=== PATIENT | female | born 1965 | race African-American/Black ===

== ENCOUNTER 2024-02-27 06:00 | Inpatient (IN) | payer MEDICAID ==
[~2024-02-27] VITALS: Ht 172.7 cm; Wt 89.2 kg
[2024-02-27] VITALS (17 sets, daily range): BP systolic 123–145; BP diastolic 65–94; PULSE 66–97; RESP 14–20; TEMP 97.4–98.4; O2SAT 18–100
[~2024-02-27 06:00] MED LIST: DIVA125T30 PO; GABA-1250 PO; HYDR-4833; QUET400T
[2024-02-27] MEDS: SUCCINYLCHOLINE CHLORIDE 20 MG/ML 10ML VIAL IV ONE (06:33)
[2024-02-27] MEDS: ceFAZolin 2 GM/D5W100ml 100 ML IV ONE (06:33)
[2024-02-27] MEDS: TETRACAINE 1% INJ 2 ML VIAL IJ ONE (06:33)
[2024-02-27] MEDS ORDERED: MORPHINE SULF PF 5 MG/10 ML VIAL ONE (06:36)
[2024-02-27] MEDS ORDERED: fentaNYL CITRATE 100 MCG/2 ML VL ONE (06:36)
[2024-02-27] MEDS ORDERED: ONDANSETRON HCL 4 MG/2 ML VIAL ONE (06:36)
[2024-02-27] MEDS ORDERED: EPINEPHrine HCL 1 MG/1 ML AMP ONE (06:36)
[2024-02-27] MEDS: ROPIVACAINE 0.5% (5MG/ML) 20ML AMPULE IJ ONE ×2 (06:36→08:47)
[2024-02-27] MEDS ORDERED: MIDAZOLAM HCL 2MG/2ML 2ml VIAL (1mg/ml) ONE ×2 (06:36)
[2024-02-27] MEDS: BUPIVACAINE 0.25% INJ 50ML VIAL ONE (06:36)
[2024-02-27] MEDS ORDERED: BUPIVACAINE/DEXTROSE MPF 0.75% 2 ML AMP IT ONE (06:36)
[2024-02-27] MEDS ORDERED: LIDOCAINE 1% INJ PF 5ML AMP ONE (06:36)
[2024-02-27] MEDS ORDERED: DexAMETHasone SOD PHOS 10MG/1ML VIAL INJ ONE (06:36)
[2024-02-27] MEDS ORDERED: PROPOFOL 10 MG/ML 20 ML IV ONE (06:36)
[2024-02-27] MEDS: TRANEXAMIC ACID 20 ML ONE (06:36)
[2024-02-27] MEDS ORDERED: SODIUM CHLORIDE LOCK 10 ML ONE (06:36)
[2024-02-27] MEDS: VANCOMYCIN HCL 1000 MG VL ONE (06:38)
[2024-02-27] MEDS: EPINEPHrine HCL 1 MG/1 ML AMP ONE (06:41)
[2024-02-27] MEDS ORDERED: MORPHINE SULFATE INJ 2 MG/ml SYRG IV PRN (07:00)
[2024-02-27] MEDS: METOCLOPRAMIDE HCL 5MG/ml INJ 2ml VIAL IV ONE (07:00)
[2024-02-27] MEDS ORDERED: HYDROmorphone HCL 2 MG/ML VL/or syr IV PRN ×2 (07:00)
[2024-02-27] MEDS: CEFEPIME 1GM/ 50ML 50 ML IV ONE (07:31)
--- NOTE | 2024-02-27 09:19 | DVHOP2 ---
Operative Report - 2 Report Details Date: 02/27/24 Preop Diagnosis: Right knee degenerative arthritis Postop Diagnosis: Same Surgeon: Benjamin Shah MD Field Sales Executive: Bill JENNINGS Anesthesiologist: Lennox Anesthesia: Local, Regional Drains: Alicia closed wound suction Implant: DJO right femur size seven PS, size six tibial base plate, size 10 polyethylene Consent: The patient was informed of the risks and benefits of the procedure. These include but are not limited to complications of anesthesia, postoperative infection, incomplete relief of symptoms, recurrence of symptoms, damage to blood vessels, nerves and tendons, deep venous thrombosis, pulmonary embolism and possible need for repeat surgery in the future. Complications: None Estimated Blood Loss: 25 cc Fluids: See anesthesia record Findings: Varus deformity, denuded cartilage with eburnated bone and osteophytes Indications for Surgery: Right knee severe pain and functional impairment secondary to degenerative arthritis and failed nonoperative management Name of Procedure Performed Right total knee arthroplasty Procedure Details Procedure Details: The patient was brought to the operating room and placed on the table in the supine position after being given spinal anesthetic with adequate analgesia obtained. Surgical timeout was performed verifying patient, laterality and procedure Preop patient received IV IV Ancef, cefepime and IV tranexamic acid. Tourniquet was applied to the lower extremity. Extremity was elevated, exsanguinated Esmarch, and tourniquet inflated. Lower extremity was prepped and draped in sterile fashion. Midline incision was made followed by medial arthrotomy. I exposed the anterior medial and lateral tibial plateau and the anterior distal femur. Bovie and aqua mantis were used for hemostasis. I excised the anterior meniscal tissue with Bovie. [ I excised the anterior cruciate ligament with Bovie.] I excised a portion of the fat pad with Bovie. The patella was everted and the knee flexed. I drilled the distal femur and suctioned the hole to reduce the risk of fat emboli. I inserted intramedullary guide with 5 degree valgus setting. I pinned the distal femoral cutting block anteriorly. Intramedullary jaylyn was removed. Distal femoral cut was made and the block removed. I brought my attention to the tibia setting up the external cutting jig for the tibia paying attention to slope, rotation and varus valgus alignment. I set the depth and pinned the block. I used the external alignment jaylyn to aid in checking alignment. Bone cut was made and bone removed releasing soft tissue attachments with Bovie. Cutting block removed. I then checked the extension gap and deemed adequate and removed the femur and tibia pins. I flexed the knee and applied the femoral sizing guide to the femur. I checked the size and external rotation setting at 90 degrees to [place] line and checking the epicondylar axis. I drilled the holes then removed the sizing guide and pin. I then tapped on the 4 in 1 cutting block and checked with the star wing anteriorly to make sure that I would not notch then pinned the block. Cuts were made and the block and pins were removed. Bone was removed with curved osteotome. I used a rongeur to remove any remaining osteophytes at the femur and tibia. I then used a lamina picture booker to open up the back alternating between the medial and lateral side. Any remaining meniscal tissue was excised with scalpel. I used curved osteotome, curette and rongeur to remove any poste rior osteophytes. [I injected a total of 20 cc of 0.5% ropivacaine into the posterior capsule to facilitate the planned adductor block.] I prophylactically coagulated with aqua mantis. I then applied the template for the box cut and pinned it. Box cut was made and bone removed. I removed the template and pins. I then tapped on the femoral trial. I inserted the box cutting guide. I used the reamer and box osteotome to make the box cut. Guide was removed. I then removed bone in the notch with rongeur and inserted the box trial. I then brought my attention back to the tibia sizing it. I used the external alignment jaylyn to make sure that rotation and alignment were good. I made a Bovie marcela at the tibial tray marcela identifying rotation for later use. I pinned the tray and used the reamer and keel punch. I tried various tibial polytrials until I was satisfied. The patella tracked nicely without thumb pressure. I removed the trials. The implants were brought into the field while bone preparation was started. I used both normal saline irrigation and the CarboJet to prepare the bone. I used the chamfer cut to graft the femoral tunnel. Once cement was ready I applied cement to the tibial implant and tibial bone tapped it on and removed excess cement in usual fashion. In similar fashion I tapped on the femoral implant. I inserted the trial polyethylene and brought the knee into 30 degrees flexion. I irrigated with xperience irrigant. Once cement cured, I checked stability and range of motion as well as patella tracking. tourniquet was released and hemostasis maintained with aqua mantis. I inserted the polyethylene and again checked stability. I used a 2 grams of vancomycin half of which was placed deep and half superficial. I repaired the extensor mechanism with the knee in flexion with #1 Ethibond interrupted [id number]. Deep subcutaneous tissue was closed with 0 Vicryl. Superficial subcutaneous tissue was closed with 2-0 vicryl interrupted. Skin was closed with ira. I then applied the [alicia closed wound suction]. Patient tolerated the procedure well and was brought to recovery room in stable condition. Condition Stable Disposition Still a Patient BENJAMIN SHAH MD Feb 27, 2024 09:19
[2024-02-27] MEDS ORDERED: oxyCODONE HCL 5MG TAB PO PRN ×2 (09:30)
[2024-02-27] MEDS ORDERED: NALOXONE HCL 0.4 MG/ML VIAL IV PRN (09:30)
[2024-02-27] MEDS: D5W/LACTATED RINGERS 1,000 ML IV SCH (09:30)
[2024-02-27] MEDS ORDERED: ACETAMINOPHEN 325 MG TAB PO PRN (09:30)
[2024-02-27] MEDS ORDERED: diphenhdrAMINE HCL 50 MG/1 ML VL IV PRN (09:30)
[2024-02-27] MEDS: PREGABALIN 25 MG CAP PO SCH (10:00)
--- NOTE | 2024-02-27 10:02 | DVH ---
CLINICAL INDICATION: postop TECHNIQUE: XY R KNEE 2V XRAY Comparison: None FINDINGS/IMPRESSION: Right total knee arthroplasty. Skin ira are present.
[2024-02-27] MEDS: ACETAMINOPHEN 325 MG TAB PO SCH (12:27)
[2024-02-27] MEDS: KETOROLAC TROMETH 30 MG/ML 1ML VIAL IV SCH (12:27)
[2024-02-27] MEDS: ceFAZolin 2 GM/D5W50ml 50 ML IV SCH (15:38)
--- NOTE | 2024-02-27 16:24 | DVHINCON2 ---
Date Seen: Feb 27, 2024 Referring Physician Orthopedic surgeon. Reason for Consultation Medical management. History of Present Illness 58-year-old female with a known history of peripheral neuropathy, bipolar disorder initially was sent to the hospital with a degenerative joint disease of the right knee. Patient currently status post right total knee arthroplasty. Patient does have known history of bipolar disorder and peripheral neuropathy currently on gabapentin and Seroquel. Patient currently denies any chest pain shortness of breath. Past Medical History Bipolar disorder Peripheral neuropathy Past Surgical History Status post right total knee arthroplasty for degenerative joint disease of the right knee. Family History: Patient reports no known family medical history. Allergies: Coded Allergies: NO KNOWN ALLERGIES (Unverified , 02/24/24) Home Meds Reported Medications Divalproex Sodium (Depakote) 125 Mg Tab, 125 MG PO, TAB 02/24/24 Gabapentin (Gabapentin) 300 Mg Cap, 300 MG PO for 30 Days, MG 02/24/24 Quetiapine Fumerate (Seroquel) 400 Mg Tab 12/31/11 Hydrocodone-Acetaminophen ([place] 5/325MG) 1 Tab Tb 12/31/11 Current Medications Current Medications Medications (Trade) Dose Ordered Sig/Goldy Route PRN Reason Start Time Stop Time Status Last Admin Hydromorphone HCl (Dilaudid Injection) 0.5 mg Q10M PRN IV SEVERE PAIN (7-10 PAIN SCALE) 02/27/24 07:00 02/27/24 07:41 DC Hydromorphone HCl (Dilaudid Injection) 0.25 mg Q10M PRN IV MODERATE PAIN (4-6 PAIN SCALE) 02/27/24 07:00 02/27/24 07:31 DC Morphine Sulfate 1 mg Q30M PRN IV SEVERE PAIN (7-10 PAIN SCALE) 02/27/24 07:00 02/27/24 09:01 DC Diphenhydramine HCl (Benadryl Injection) 25 mg Q4HP PRN IV FOR ITCHING 02/27/24 09:30 Naloxone HCl (Narcan) 0.2 mg Q5M PRN IV For respirations < than 10/min 02/27/24 09:30 02/27/24 09:36 DC Quetiapine Fumarate (SEROquel TABLET) 400 mg HS PO 02/27/24 22:00 Dextrose/Lactated Ringer's 1,000 ml @ 100 mls/hr Q10H IV 02/27/24 09:30 02/27/24 09:30 Acetaminophen (Tylenol Tablet) 650 mg Q4HP PRN PO MILD PAIN (1-3 PAIN SCALE) 02/27/24 09:30 Cefazolin Sodium/ Dextrose 50 ml @ 50 mls/hr Q8HR IV 02/27/24 14:00 02/27/24 22:59 02/27/24 15:38 Acetaminophen (Tylenol Tablet) 650 mg Q6HR PO 02/27/24 12:00 02/27/24 12:27 Ketorolac Tromethamine (Toradol Injection) 15 mg Q6HR IV 02/27/24 12:00 03/03/24 11:59 02/27/24 12:27 Pregabalin (Lyrica Capsule) 50 mg BID PO 02/27/24 10:00 Oxycodone HCl 5 mg Q4HP PRN PO MODERATE PAIN (4-6 PAIN SCALE) 02/27/24 09:30 Oxycodone HCl 10 mg Q4HP PRN PO SEVERE PAIN (7-10 PAIN SCALE) 02/27/24 09:30 Aspirin 81 mg BID PO 02/28/24 10:00 Review of Systems Twelve review of system were negative except mentioned above Vital Signs Vital Signs Date Time Temp Pulse Resp B/P (MAP) Pulse Ox O2 Delivery O2 Flow Rate FiO2 02/27/24 16:08 82 16 97 02/27/24 13:00 98.4 142/79 (100) 98.4 02/27/24 12:11 Room Air* 0 21 Physical Exam HEENT pupils are reactive Neck is supple CV is S1-S2 regular rate and rhythm Respiratory diminished breath sound bases GI posterior portion 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 1. Bipolar disorder 2. Peripheral neuropathy 3. Status post right total knee arthroplasty for degenerative joint disease -pain meds as needed, resume home medication, PT evaluation and treatment, discharge plan. Plan discussed with: Patient Date of Service: Feb 27, 2024 Billing Provider: ISSA LEGER MD Common Visit Codes: NOT BILLABLE ISSA LEGER MD Feb 27, 2024 16:24
[2024-02-27] MEDS: ONDANSETRON HCL 4 MG/2 ML VIAL IV PRN (18:27)
[2024-02-27] MEDS: QUEtiapine FUMARATE 100 MG TAB PO SCH (20:41)
[2024-02-28] VITALS (18 sets, daily range): BP systolic 111–149; BP diastolic 70–88; PULSE 68–127; RESP 16–22; TEMP 97.6–98.3; O2SAT 93–98
[2024-02-28 06:20] LABS: Anion Gap 6 (5-15); Carbon Dioxide 32 mmol/L (20-31); Chloride 105 mmol/L (98-107); Potassium 3.8 mmol/L (3.5-5.1); Sodium 143 mmol/L (136-145)
[2024-02-28 06:21] LABS: Calcium 9.6 mg/dL (8.7-10.4)
[2024-02-28 06:26] LABS: Blood Urea Nitrogen 15 mg/dL (9-23); Glucose 112 mg/dL (74-106)
[2024-02-28 08:02] LABS: Basophils # (auto) 0.1 10 ^3/uL (0-0.2); Basophils % (auto) 0.8 % (0.0-2.0); Eosinophils # (auto) 0 10 ^3/uL (0-0.8); Eosinophils % (auto) 0.5 % (0.0-7.0); Hematocrit 34.9 % (36.0-46.0); Hemoglobin 11.7 g/dL (12.2-16.2); Lymphocytes # (auto) 2.2 10 ^3/uL (0.4-5.4); Lymphocytes % (auto) 26.8 % (10.0-50.0); Mean Corpuscular Hemoglobin 31.6 pg (28.0-32.0); Mean Corpuscular Hgb Conc. 33.5 g/dL (32.0-36.0); Mean Corpuscular Volume 94.4 fL (80.0-100.0); Monocytes # (auto) 1.2 10 ^3/uL (0-1.3); Neutrophils # (auto) 4.6 10 ^3/uL (1.6-8.6); Neutrophils % (auto) 56.9 % (37.0-80.0); Nucleated Red Blood Cells % 0.1 %; Platelet Count (auto) 254 10^3/uL (140-450); Red Cell Distribution Width 13.3 % (11.8-14.3); White Blood Cell 8.1 10^3/uL (4.4-10.8)
[2024-02-28] MEDS: ASPirin 81 mg TAB PO SCH (09:40)
--- NOTE | 2024-02-28 11:08 | DVHPN2 ---
Progress Note - Dictate Date Seen: Feb 28, 2024 Medical Necessity Reason Pt with a Central, PICC or Fol: No Subjective Patient was lying comfortably in bed during my evaluation and reports some postoperative knee pain that has not improved much despite the use of pain medications and reports that she was given pain meds last night and began experiencing nausea and vomited approximately 600ml of fluid according to nurse who also reports that the patient developed the nausea after being given Toradol. Patient continues to experience nausea today and was just about to be given Zofran during my evaluation. Patient reports that she was able to walk a few steps near her bed but felt a lot of pain and nausea so had to sit back down. She is otherwise feeling well denying any other complaints or concerns during my evaluation. vital signs Vital Sign Date Time Temp Pulse Resp B/P (MAP) Pulse Ox O2 Delivery O2 Flow Rate FiO2 02/28/24 09:11 115 18 93 02/28/24 09:00 98.0 125/76 (92) 98.0 02/28/24 08:00 Room Air* 0 21 Total Intake and Output 02/27/24 02/27/24 02/28/24 15:00 23:00 07:00 Intake Total 1100 ml 1200 ml Output Total 600 ml 250 ml Balance 500 ml 950 ml medications Current Medications Medications Dose Ordered Sig/Goldy Route Start Time Stop Time Status Last Admin Dose Admin Diphenhydramine HCl 25 mg Q4HP PRN IV 02/27/24 09:30 Quetiapine Fumarate 400 mg HS PO 02/27/24 22:00 02/27/24 20:41 400 MG Dextrose/Lactated Ringer's 1,000 ml @ 100 mls/hr Q10H IV 02/27/24 09:30 02/28/24 03:59 100 MLS/HR Acetaminophen 650 mg Q4HP PRN PO 02/27/24 09:30 Acetaminophen 650 mg Q6HR PO 02/27/24 12:00 02/27/24 12:27 650 MG Ketorolac Tromethamine 15 mg Q6HR IV 02/27/24 12:00 03/03/24 11:59 02/27/24 18:19 15 MG Pregabalin 50 mg BID PO 02/27/24 10:00 Oxycodone HCl 5 mg Q4HP PRN PO 02/27/24 09:30 Oxycodone HCl 10 mg Q4HP PRN PO 02/27/24 09:30 Aspirin 81 mg BID PO 02/28/24 10:00 Ondansetron HCl 4 mg Q4HPRN PRN IV 02/27/24 17:30 02/28/24 10:53 4 MG objective A&O x4 in no acute distress Knee ROM grossly limited with pain on movement Rasheeda dressings clean, dry, intact, and maintaining suction No distal edema or calf tenderness to palpation NV intact with cap refill < 2 seconds laboratory and microbiology Laboratory Tests 02/28/24 07:30 02/28/24 05:20 Test 02/28/24 05:20 Range/Units Serum Glucose 112 H 74-106 mg/dL Assessment/Plan Continue current management as well as pain control and physical therapy. Advised patient to remain WBAT with the assistance of a walker. We will reconvene with the patient tomorrow for evaluation and possible discharge. Plan discussed with: Patient POONAM CUBA Feb 28, 2024 11:08
--- NOTE | 2024-02-28 19:09 | DVHPN2 ---
Subjective Overnight events noted. He has been nurse patient complaining of nausea and vomiting. 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 Medications Current Medications Medications Dose Ordered Sig/Goldy Route Start Time Stop Time Status Last Admin Dose Admin Diphenhydramine HCl 25 mg Q4HP PRN IV 02/27/24 09:30 Quetiapine Fumarate 400 mg HS PO 02/27/24 22:00 02/27/24 20:41 400 MG Dextrose/Lactated Ringer's 1,000 ml @ 100 mls/hr Q10H IV 02/27/24 09:30 02/28/24 14:31 100 MLS/HR Acetaminophen 650 mg Q4HP PRN PO 02/27/24 09:30 Acetaminophen 650 mg Q6HR PO 02/27/24 12:00 02/27/24 12:27 650 MG Ketorolac Tromethamine 15 mg Q6HR IV 02/27/24 12:00 03/03/24 11:59 02/27/24 18:19 15 MG Pregabalin 50 mg BID PO 02/27/24 10:00 Oxycodone HCl 5 mg Q4HP PRN PO 02/27/24 09:30 Oxycodone HCl 10 mg Q4HP PRN PO 02/27/24 09:30 Aspirin 81 mg BID PO 02/28/24 10:00 Ondansetron HCl 4 mg Q4HPRN PRN IV 02/27/24 17:30 02/28/24 14:30 4 MG Patient Own Medication 125 DAILY PO 02/29/24 10:00 Laboratory Results Laboratory Tests 02/28/24 05:20 02/28/24 07:30 Chemistry Test 02/28/24 05:20 Calcium Level 9.6 mg/dL (8.7-10.4) Assessment/Plan Assessment/Plan 58-year-old female with a known history of peripheral neuropathy, bipolar disorder, degenerative joint disease who is here for status post right total knee arthroplasty. 1. Bipolar disorder 2. Peripheral neuropathy 3. Status post right total knee arthroplasty for degenerative joint disease -home medications, PT evaluation and treatment, discharge plan Plan discussed with: Patient Date of Service: Feb 28, 2024 Billing Provider: ISSA LEGER MD Common Visit Codes: NOT BILLABLE ISSA LEGER MD Feb 28, 2024 19:09
[2024-02-29] VITALS (8 sets, daily range): BP systolic 110–161; BP diastolic 63–93; PULSE 100–111; RESP 17–20; TEMP 97.4–98.5; O2SAT 90–100
[2024-02-29] MEDS: DIVALPROEX 125 MG PO SCH (10:00)
--- NOTE | 2024-02-29 10:00 | DVHDS2 ---
Discharge Summary Date of Admission Feb 27, 2024 at 09:21 Date of Discharge: Mar 04, 2024 Labs/Diagnostic Data: Laboratory Results Test 02/28/24 07:30 02/28/24 05:20 02/27/24 17:05 White Blood Count 8.1 10^3/uL (4.4-10.8) Red Blood Count 3.70 10^6/uL (4.0-5.20) Hemoglobin 11.7 g/dL (12.2-16.2) Hematocrit 34.9 % (36.0-46.0) Mean Corpuscular Volume 94.4 fL (80.0-100.0) Mean Corpuscular Hemoglobin 31.6 pg (28.0-32.0) Mean Corpuscular Hemoglobin Concent 33.5 g/dL (32.0-36.0) Red Cell Distribution Width 13.3 % (11.8-14.3) Platelet Count 254 10^3/uL (140-450) Mean Platelet Volume 10.0 fL (6.9-10.8) Neutrophils (%) (Auto) 56.9 % (37.0-80.0) Lymphocytes (%) (Auto) 26.8 % (10.0-50.0) Monocytes (%) (Auto) 15.0 % (0.0-12.0) Eosinophils (%) (Auto) 0.5 % (0.0-7.0) Basophils (%) (Auto) 0.8 % (0.0-2.0) Neutrophils # (Auto) 4.6 10 ^3/uL (1.6-8.6) Lymphocytes # (Auto) 2.2 10 ^3/uL (0.4-5.4) Monocytes # (Auto) 1.2 10 ^3/uL (0-1.3) Eosinophils # (Auto) 0 10 ^3/uL (0-0.8) Basophils # (Auto) 0.1 10 ^3/uL (0-0.2) Nucleated Red Blood Cells 0.1 % Sodium Level 143 mmol/L (136-145) Potassium Level 3.8 mmol/L (3.5-5.1) Chloride Level 105 mmol/L (98-107) Carbon Dioxide Level 32 mmol/L (20-31) Anion Gap 6 (5-15) Blood Urea Nitrogen 15 mg/dL (9-23) Creatinine 0.88 mg/dL (0.550-1.02) Glomerular Filtration Rate Calc 75 mL/min (>90) BUN/Creatinine Ratio 17.0 (10.0-20.0) Serum Glucose 112 mg/dL (74-106) Calcium Level 9.6 mg/dL (8.7-10.4) Other Laboratory Tests 02/28/24 07:30 02/28/24 05:20 Brief Hx & Hospital Course: Patient was brought to the hospital on Tuesday to undergo a right total knee arthroplasty. She tolerated procedure well and was kept overnight for postoperative observation. On her 1st night she experienced severe nausea and an episode of emesis which are nurses believe was triggered by her receiving Toradol as shortly after is when her nausea and vomiting started but was resolved once she was given Zofran the next morning, and she has not had any further nausea or vomiting since. Patient still reports severe postoperative knee pain that is limiting her ambulation and has only been able to take a few steps near bedside. Given that the patient continues to experience severe pain that is limiting her rehabilitation we have recommended patient be transferred to a jail facility to assist with the acute phase of her recovery. She is admitted and underwent a successful knee surgery. Postop knee patient ready to be discharged however complain of abdominal pain and not tolerating her diet. Therefore she was evaluated by general surgeon and noted to have acute cholecystitis. Subsequently she underwent a successful laparoscopic cholecystectomy. Postop she was tolerating the diet now. Abdominal pain is resolved. Patient is ambulating with a walker. Clinically stable therefore she has been discharged home in stable condition with the continued outpatient treatment with physical therapy for her knee rehab and to follow up with both the surgeons postop follow up care. Patient is being prescribed pain medication, empiric antibiotic and laxity. I have talked with the patient regarding her hospital diagnosis, treatment she received, discharge medications, discharge instructions and follow-up plan of care. She has verbalized understanding of these and agree with the discharge care plan Consults/Reason for consult Operative Report - 2 Report Details Date: 02/27/24 Preop Diagnosis: Right knee degenerative arthritis Postop Diagnosis: Same Surgeon: Nhan Polo MD Screen Handler: Bill JENNINGS Anesthesiologist: Lennox Anesthesia: Local, Regional Drains: Rasheeda closed wound suction Implant: DJO right femur size seven PS, size six tibial base plate, size 10 polyethylene Consent: The patient was informed of the risks and benefits of the procedure. These include but are not limited to complications of anesthesia, postoperative infection, incomplete relief of symptoms, recurrence of symptoms, damage to blood vessels, nerves and tendons, deep venous thrombosis, pulmonary embolism and possible need for repeat surgery in the future. Complications: None Operations or Procedures Operative Report - 2 Report Details Date: 03/03/24 Preop Diagnosis: acute cholecystitis Postop Diagnosis: acute cholecystitis Surgeon: Ion Vidal MD Condition at Discharge: Stable Final Diagnosis/Problems List S/P right total knee arthroplasty Secondary Diagnosis: Status post laparoscopic cholecystectomy Discharge Disposition: Home with Health Services Discharge Instruct/Medications Diet: Regular Activity: See Comment Activity comment: WBAT with the assistance of a walker Follow Up/Referral: Patient to follow up in 10-14 days for her first postoperative evaluation. Medications: Rx sent via our outpatient EMR system New Medications: Amoxicillin & Pot Clavulanate (Augmentin) 500 Mg Tab 1 TAB PO BID, #10 TAB Hydrocodone-Acetaminophen (Hydrocodone Bitartrate/AC 5-325 mg) 1 Tab Tab 1 TAB PO Q6HPRN PRN, #10 TAB Senna (Senokot) 8.6 Mg Tab 8.6 MG PO QPM, #14 TAB Continued Medications: Divalproex Sodium (Depakote) 125 Mg Tab 125 MG PO, TAB Gabapentin (Gabapentin) 300 Mg Cap 300 MG PO for 30 Days, MG Quetiapine Fumerate (Seroquel) 400 Mg Tab Discontinued Medications: Hydrocodone-Acetaminophen ([place] 5/325MG) 1 Tab Tb Discharge Statement: "Patient was advised to return to the ER or call 911 if any headaches, dizziness, shortness of breath, chest pain, abdominal pain, bleeding, fevers, or worsening of medical condition. Patient was counseled about treatment plan, medications, possible side effects, patientverbalized understanding. All questions were answered to the best of my ability. This discharge took greater then 30 minutes in planning, reviewing documentation, counseling the patient, and discussing with other team members." ASSESSMENT ASSESSMENT Assessment S/P right total knee arthroplasty POONAM CUBA Feb 29, 2024 10:00 BRENNA NIÑO MD Mar 04, 2024 12:01
--- NOTE | 2024-02-29 10:03 | DVHPN2 ---
Progress Note - Dictate Date Seen: Feb 29, 2024 Medical Necessity Reason Pt with a Central, PICC or Fol: No Subjective Patient was lying comfortably in bed during my evaluation and reports some continued postoperative knee pain that has not improved much since yesterday. Patient denies any nausea or further episodes of emesis after receiving the Zofran yesterday evening. Patient reports that she was only able to walk a few steps near her bed but is still limited due to the pain. She is otherwise feeling well denying any other complaints or concerns during my evaluation. vital signs Vital Sign Date Time Temp Pulse Resp B/P (MAP) Pulse Ox O2 Delivery O2 Flow Rate FiO2 02/29/24 05:00 97.4 104 17 110/74 (86) 100 97.4 02/28/24 20:00 Room Air* 0 21 Total Intake and Output 02/28/24 02/28/24 02/29/24 15:00 23:00 07:00 Intake Total 1000 ml Balance 1000 ml medications Current Medications Medications Dose Ordered Sig/Goldy Route Start Time Stop Time Status Last Admin Dose Admin Diphenhydramine HCl 25 mg Q4HP PRN IV 02/27/24 09:30 Quetiapine Fumarate 400 mg HS PO 02/27/24 22:00 02/27/24 20:41 400 MG Dextrose/Lactated Ringer's 1,000 ml @ 100 mls/hr Q10H IV 02/27/24 09:30 02/29/24 08:26 100 MLS/HR Acetaminophen 650 mg Q4HP PRN PO 02/27/24 09:30 Acetaminophen 650 mg Q6HR PO 02/27/24 12:00 02/27/24 12:27 650 MG Ketorolac Tromethamine 15 mg Q6HR IV 02/27/24 12:00 03/03/24 11:59 02/27/24 18:19 15 MG Pregabalin 50 mg BID PO 02/27/24 10:00 Oxycodone HCl 5 mg Q4HP PRN PO 02/27/24 09:30 Oxycodone HCl 10 mg Q4HP PRN PO 02/27/24 09:30 Aspirin 81 mg BID PO 02/28/24 10:00 Ondansetron HCl 4 mg Q4HPRN PRN IV 02/27/24 17:30 02/29/24 08:25 4 MG Patient Own Medication 125 DAILY PO 02/29/24 10:00 objective A&O x4 in no acute distress Knee ROM grossly limited with pain on movement Rasheeda dressings clean, dry, intact, and maintaining suction No distal edema or calf tenderness to palpation NV intact with cap refill < 2 seconds laboratory and microbiology Laboratory Tests 02/28/24 07:30 02/28/24 05:20 Test 02/28/24 05:20 Range/Units Serum Glucose 112 H 74-106 mg/dL Assessment/Plan Patient to be transferred to a jail facility for further assistance with the acute phase of her recovery given that she is still experiencing severe pain that is limiting her ambulation and physical therapy and has only been able take a few steps near bedside. I advised the patient to remain weight-bearing as tolerated with the assistance of a walker and to maintain her dressings clean, dry, intact, and maintaining suction. I also advised the patient to follow up with our office in 10-14 days for her 1st postoperative evaluation and to call us if she has any questions or concerns. Rx sent via our outpatient EMR system. She understood and agreed. Plan discussed with: Patient POONAM CUBA Feb 29, 2024 10:03
--- NOTE | 2024-02-29 17:25 | DVH ---
EXAM: US Abdomen Limited, Right Upper Quadrant CLINICAL INDICATION: r/o acute cholecystitis TECHNIQUE: Real-time ultrasound of the right upper quadrant with image documentation. COMPARISON: None FINDINGS: LIVER: Liver measures up to 16.0 cm. Hepatopetal plafond main portal vein. No intrahepatic bile du ct dilation. GALLBLADDER: Cholelithiasis what apparent wall thickening. Negative Hager's sign was reported by t he firepot operator and tender. COMMON BILE DUCT: Unremarkable as visualized. No stones. No dilation. Common bile duct measures 0 .51 cm in diameter. PANCREAS: Unremarkable as visualized. RIGHT KIDNEY: Right kidney measures up to 10.22 cm. No stones. No hydronephrosis. OTHER FINDINGS: . . IMPRESSION: Cholelithiasis with findings equivocal for acute cholecystitis. This could be further evaluated with HIDA scan. HS:Y
[2024-02-29] MEDS: hydrALAZINE HCL 20 MG/ML VL IV PRN (23:34)
[2024-03-01] VITALS (9 sets, daily range): BP systolic 140–163; BP diastolic 68–103; PULSE 62–110; RESP 17–20; TEMP 97.3–98.7; O2SAT 96–100
[2024-03-01] MEDS ORDERED: hydrALAZINE HCL 20 MG/ML VL IV SCH (02:00)
[2024-03-01 09:05] LABS: Hepatitis B Surface Antibody Negative (Negative)
[2024-03-01 09:39] LABS: Hepatitis C Antibody Negative (Negative)
--- NOTE | 2024-03-01 14:11 | DVHPN2 ---
Progress Note - Dictate Date Seen: Mar 01, 2024 Medical Necessity Reason Pt with a Central, PICC or Fol: No Subjective Patient was lying comfortably in bed during my evaluation and reports some continued postoperative knee pain that has not improved much since surgery. Patient denies any nausea or further episodes of emesis but has been feeling upper abdominal pain and an US revealed gallstones. Patient reports that she was only able to walk a few steps near her bed but is still limited due to the pain. She is otherwise feeling well denying any other complaints or concerns during my evaluation. vital signs Vital Sign Date Time Temp Pulse Resp B/P (MAP) Pulse Ox O2 Delivery O2 Flow Rate FiO2 03/01/24 13:23 176/80 03/01/24 13:02 97.3 110 18 100 97.3 03/01/24 08:00 Room Air* 0 21 Total Intake and Output 02/29/24 02/29/24 03/01/24 15:00 23:00 07:00 Intake Total 1025 ml 1000 ml Balance 1025 ml 1000 ml medications Current Medications Medications Dose Ordered Sig/Goldy Route Start Time Stop Time Status Last Admin Dose Admin Diphenhydramine HCl 25 mg Q4HP PRN IV 02/27/24 09:30 Quetiapine Fumarate 400 mg HS PO 02/27/24 22:00 02/27/24 20:41 400 MG Dextrose/Lactated Ringer's 1,000 ml @ 100 mls/hr Q10H IV 02/27/24 09:30 02/29/24 21:30 100 MLS/HR Acetaminophen 650 mg Q4HP PRN PO 02/27/24 09:30 Acetaminophen 650 mg Q6HR PO 02/27/24 12:00 02/27/24 12:27 650 MG Ketorolac Tromethamine 15 mg Q6HR IV 02/27/24 12:00 03/03/24 11:59 02/27/24 18:19 15 MG Pregabalin 50 mg BID PO 02/27/24 10:00 Oxycodone HCl 5 mg Q4HP PRN PO 02/27/24 09:30 Oxycodone HCl 10 mg Q4HP PRN PO 02/27/24 09:30 Hold Aspirin 81 mg BID PO 02/28/24 10:00 Ondansetron HCl 4 mg Q4HPRN PRN IV 02/27/24 17:30 02/29/24 08:25 4 MG Patient Own Medication 125 DAILY PO 02/29/24 10:00 Hydralazine HCl 10 mg Q4HPRN PRN IV 02/29/24 22:45 03/01/24 13:23 10 MG Morphine Sulfate 2 mg Q4HPRN PRN IV 03/01/24 14:00 objective A&O x4 in no acute distress Knee ROM grossly limited with pain on movement Rasheeda dressings clean, dry, intact, and maintaining suction No distal edema or calf tenderness to palpation NV intact with cap refill < 2 seconds laboratory and microbiology Laboratory Tests 02/28/24 07:30 02/28/24 05:20 Test 02/28/24 05:20 Range/Units Serum Glucose 112 H 74-106 mg/dL Assessment/Plan I spoke with Hospitalist who is recommending a HIDA scan for further evaluation of the patients upper abdominal pain with US findings of gallstones to rule out any obstruction or infection. Continue current management as well as pain control and physical therapy. Patient to remain WBAT with the assistance of a walker. We will reconvene with the patient tomorrow for reevaluation. Plan discussed with: Patient POONAM CUBA Mar 01, 2024 14:11
--- NOTE | 2024-03-01 14:36 | DVHPN2 ---
Subjective Overnight events noted. Patient complaining of nausea, epigastric.. Right hip order ultrasound shows possibility evidence of acute cholecystitis, HIDA scan was recommended. 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 Medications Current Medications Medications Dose Ordered Sig/Goldy Route Start Time Stop Time Status Last Admin Dose Admin Diphenhydramine HCl 25 mg Q4HP PRN IV 02/27/24 09:30 Quetiapine Fumarate 400 mg HS PO 02/27/24 22:00 02/27/24 20:41 400 MG Dextrose/Lactated Ringer's 1,000 ml @ 100 mls/hr Q10H IV 02/27/24 09:30 02/29/24 21:30 100 MLS/HR Acetaminophen 650 mg Q4HP PRN PO 02/27/24 09:30 Acetaminophen 650 mg Q6HR PO 02/27/24 12:00 02/27/24 12:27 650 MG Pregabalin 50 mg BID PO 02/27/24 10:00 Oxycodone HCl 5 mg Q4HP PRN PO 02/27/24 09:30 Oxycodone HCl 10 mg Q4HP PRN PO 02/27/24 09:30 Hold Aspirin 81 mg BID PO 02/28/24 10:00 Ondansetron HCl 4 mg Q4HPRN PRN IV 02/27/24 17:30 02/29/24 08:25 4 MG Patient Own Medication 125 DAILY PO 02/29/24 10:00 Hydralazine HCl 10 mg Q4HPRN PRN IV 02/29/24 22:45 03/01/24 13:23 10 MG Morphine Sulfate 2 mg Q4HPRN PRN IV 03/01/24 14:00 Piperacillin Sod/ Tazobactam Sod 100 ml @ 25 mls/hr Q8HR IV 03/01/24 14:23 Laboratory Results Laboratory Tests 02/28/24 05:20 02/28/24 07:30 Assessment/Plan Assessment/Plan 58-year-old female with a known history of peripheral neuropathy, bipolar disorder, degenerative joint disease who is here for status post right total knee arthroplasty. 1. Nausea with epigastric pain ruled out acute cholecystitis, HIDA scan pending 2. Bipolar disorder 3. Status post right total knee arthroplasty for degenerative joint disease -check liver function tests, HIDA scan, general surgical consultation- -general surgical consultation Plan discussed with: Patient My Orders Orders - ISSA LEGER MD Procedure Category Date Status Time Abdomen Limited US 02/29/24 Resulted 16:03 Comprehensive LAB 03/01/24 Logged Metabolic Panel 13:58 Nm Hida Scan NM 03/01/24 Logged 13:58 Morphine Sulfate PHA 03/01/24 In Process Injection 14:00 Nm Hida Scan NM 03/01/24 Logged 14:02 Nm Hida Scan NM 03/01/24 Logged 14:13 Piperacillin-Tazob PHA 03/01/24 In Process 3.375gm (Zosyn 3.375g 14:23 * Surgical Consult CONS 03/01/24 Transmitted Date of Service: Mar 01, 2024 Billing Provider: ISSA LEGER MD Common Visit Codes: NOT BILLABLE ISSA LEGER MD Mar 01, 2024 14:36
[2024-03-01] MEDS: MORPHINE SULFATE INJ 2 MG/ml SYRG IV PRN (16:05)
--- NOTE | 2024-03-01 16:55 | DVH ---
Procedure: NM NM HIDA SCAN Exam Date: 03/01/2024 02:43 PM Clinical History: r/o cholecystitis Comparison Study: None Nuclear Medicine Hepatobiliary Scan. Technique: Following the intravenous administration of 5.5 mCi of technetium 99m labeled Choletec multiple plana r abdominal planar images were obtained in anterior projection in 5 minute intervals for45 minutes . Right lateral images were obtained at 45 minutes after injection. Findings: Small bowel visualized at 9 minutes. No visualization of the gallbladder. Morphine augmentation was p erformed with injection of 2 mg of morphine at 35 minutes. No visualization of the gallbladder is dem onstrated. Impression: 1. Cystic duct obstruction after morphine augmentation.
[2024-03-01] MEDS: PIPERACILLIN-TAZOB 3.375GM 100 ML IV SCH (17:35)
[2024-03-01 18:55] LABS: Alanine Aminotransferase 11 U/L (7-40); Albumin 4.2 g/dL (3.2-4.8); Alkaline Phosphatase 86 U/L (46-116); Anion Gap 11 (5-15); Aspartate Aminotransferase 20 U/L (13-40); BUN/Creatinine Ratio 11.6 (10.0-20.0); Blood Urea Nitrogen 8 mg/dL (9-23); Calcium 9.5 mg/dL (8.7-10.4); Carbon Dioxide 24 mmol/L (20-31); Chloride 106 mmol/L (98-107); Glucose 93 mg/dL (74-106); Potassium 3.3 mmol/L (3.5-5.1); Sodium 141 mmol/L (136-145)
[2024-03-01 18:56] LABS: Bilirubin, Total 0.9 mg/dL (0.2-1.0)
[2024-03-02] VITALS (7 sets, daily range): BP systolic 110–133; BP diastolic 53–74; PULSE 86–123; RESP 18–21; TEMP 97–98.6; O2SAT 90–100
[2024-03-02] MEDS: PIPERACILLIN-TAZOB 3.375GM 100 ML IV SCH (01:25)
--- NOTE | 2024-03-02 08:03 | DVHPN2 ---
Progress Note - Dictate Date Seen: Mar 02, 2024 Medical Necessity Reason Pt with a Central, PICC or Fol: No Subjective Patient was lying comfortably in bed during my evaluation and reports some continued postoperative knee pain that has not improved much since surgery as well as continued upper abdominal pain without nausea or any further episodes of emesis. Patient reports that she was only able to walk a few steps near her bed but is still limited due to the pain. She is otherwise feeling well denying any other complaints or concerns during my evaluation. vital signs Vital Sign Date Time Temp Pulse Resp B/P (MAP) Pulse Ox O2 Delivery O2 Flow Rate FiO2 03/02/24 05:00 98.4 114 21 133/67 (89) 100 98.4 03/01/24 20:00 Room Air* 0 21 Total Intake and Output 03/01/24 03/01/24 03/02/24 15:00 23:00 07:00 Intake Total 225 ml 350 ml Balance 225 ml 350 ml medications Current Medications Medications Dose Ordered Sig/Goldy Route Start Time Stop Time Status Last Admin Dose Admin Diphenhydramine HCl 25 mg Q4HP PRN IV 02/27/24 09:30 Quetiapine Fumarate 400 mg HS PO 02/27/24 22:00 03/01/24 23:14 400 MG Dextrose/Lactated Ringer's 1,000 ml @ 100 mls/hr Q10H IV 02/27/24 09:30 02/29/24 21:30 100 MLS/HR Acetaminophen 650 mg Q4HP PRN PO 02/27/24 09:30 Acetaminophen 650 mg Q6HR PO 02/27/24 12:00 02/27/24 12:27 650 MG Pregabalin 50 mg BID PO 02/27/24 10:00 03/01/24 22:00 50 MG Oxycodone HCl 5 mg Q4HP PRN PO 02/27/24 09:30 Oxycodone HCl 10 mg Q4HP PRN PO 02/27/24 09:30 Hold Aspirin 81 mg BID PO 02/28/24 10:00 03/01/24 23:14 81 MG Ondansetron HCl 4 mg Q4HPRN PRN IV 02/27/24 17:30 03/01/24 21:17 4 MG Patient Own Medication 125 DAILY PO 02/29/24 10:00 Hydralazine HCl 10 mg Q4HPRN PRN IV 02/29/24 22:45 03/01/24 13:23 10 MG Morphine Sulfate 2 mg Q4HPRN PRN IV 03/01/24 14:00 03/01/24 21:12 2 MG Piperacillin Sod/ Tazobactam Sod 100 ml @ 25 mls/hr Q8H IV 03/02/24 01:00 03/02/24 01:25 25 MLS/HR objective A&O x4 in no acute distress Knee ROM grossly limited with pain on movement Rasheeda dressings clean, dry, intact, and maintaining suction No distal edema or calf tenderness to palpation NV intact with cap refill < 2 seconds laboratory and microbiology Laboratory Tests 03/01/24 17:51 02/28/24 07:30 Test 03/01/24 17:51 Range/Units Serum Glucose 93 74-106 mg/dL Assessment/Plan HIDA scan has been completed and is currently pending a consultation by General surgery for further evaluation. Continue current management as well as pain control and physical therapy and advised patient to remain weight-bearing as tolerated with the assistance of a walker. We will continue to observe for now. Plan discussed with: Patient POONAM CUBA Mar 02, 2024 08:03
--- NOTE | 2024-03-02 13:07 | DVHPN2 ---
Progress Note - Dictate Date Seen: Mar 02, 2024 Medical Necessity Reason Pt with a Central, PICC or Fol: No Subjective Patient seen evaluated and took over care today. Chart is reviewed. Patient is clinically stable. Her gallbladder workup came back abnormal suggestive of cholecystitis therefore she was evaluated by general surgeon and scheduled for gallbladder surgery for tomorrow. vital signs Vital Sign Date Time Temp Pulse Resp B/P (MAP) Pulse Ox O2 Delivery O2 Flow Rate FiO2 03/02/24 05:00 98.4 114 21 133/67 (89) 100 98.4 03/01/24 20:00 Room Air* 0 21 Total Intake and Output 03/01/24 03/01/24 03/02/24 15:00 23:00 07:00 Intake Total 225 ml 450 ml Balance 225 ml 450 ml medications Current Medications Medications Dose Ordered Sig/Goldy Route Start Time Stop Time Status Last Admin Dose Admin Diphenhydramine HCl 25 mg Q4HP PRN IV 02/27/24 09:30 Quetiapine Fumarate 400 mg HS PO 02/27/24 22:00 03/01/24 23:14 400 MG Dextrose/Lactated Ringer's 1,000 ml @ 100 mls/hr Q10H IV 02/27/24 09:30 02/29/24 21:30 100 MLS/HR Acetaminophen 650 mg Q4HP PRN PO 02/27/24 09:30 Acetaminophen 650 mg Q6HR PO 02/27/24 12:00 02/27/24 12:27 650 MG Pregabalin 50 mg BID PO 02/27/24 10:00 03/02/24 09:44 50 MG Oxycodone HCl 5 mg Q4HP PRN PO 02/27/24 09:30 Oxycodone HCl 10 mg Q4HP PRN PO 02/27/24 09:30 Hold Ondansetron HCl 4 mg Q4HPRN PRN IV 02/27/24 17:30 03/01/24 21:17 4 MG Patient Own Medication 125 DAILY PO 02/29/24 10:00 Hydralazine HCl 10 mg Q4HPRN PRN IV 02/29/24 22:45 03/01/24 13:23 10 MG Morphine Sulfate 2 mg Q4HPRN PRN IV 03/01/24 14:00 03/01/24 21:12 2 MG Piperacillin Sod/ Tazobactam Sod 100 ml @ 25 mls/hr Q8H IV 03/02/24 01:00 03/02/24 09:19 25 MLS/HR objective Comfortable in bed without any complaints. Wants to eat. Heart regular rate and rhythm S1 plus S2. Lungs without rales wheezes. Abdomen soft obese nontender positive bowel sounds. Extremities no edema. Right knee postsurgical dressing in place without erythema or edema noted. Positive distal pedal pulses. laboratory and microbiology Laboratory Tests 03/01/24 17:51 02/28/24 07:30 Test 03/01/24 17:51 Range/Units Serum Glucose 93 74-106 mg/dL Assessment/Plan Acute cholecystitis Status post right knee surgery Patient is clinically stable. Start her on clear liquid diet today. NPO after midnight. Proceed with surgery tomorrow. We will do preop workup including UA EKG and coagulation profile. Discussed with the patient's nurse regarding care plan. Plan discussed with: Other BRENNA NIÑO MD Mar 02, 2024 13:06
[2024-03-02 13:14] LABS: INR 1.03 (0.9-1.15); Partial Thromboplastin Time 29.2 SEC (24.5-34.5); Prothrombin Time 10.9 sec (9.3-11.8)
--- NOTE | 2024-03-02 14:00 | DVH ---
EXAM: XY CHEST XRAY 1 VIEW Indication: Pain Technique: Single frontal view of the chest was obtained Comparison: None FINDINGS: Lines and Tubes: None Lungs: No focal consolidation. Patient is rotated which limits evaluation. Pleura: No effusion. No pneumothorax. Cardiomediastinal contours: Unremarkable Bones: No acute osseous abnormality. IMPRESSION: No acute cardiopulmonary disease.
[2024-03-03] VITALS (10 sets, daily range): BP systolic 111–143; BP diastolic 60–82; PULSE 60–107; RESP 16–20; TEMP 97.8–98.4; O2SAT 94–100
[2024-03-03 06:24] LABS: Basophils # (auto) 0.1 10 ^3/uL (0-0.2); Basophils % (auto) 0.9 % (0.0-2.0); Eosinophils # (auto) 0.4 10 ^3/uL (0-0.8); Eosinophils % (auto) 5.6 % (0.0-7.0); Hematocrit 29.3 % (36.0-46.0); Hemoglobin 10.2 g/dL (12.2-16.2); Lymphocytes # (auto) 2.3 10 ^3/uL (0.4-5.4); Lymphocytes % (auto) 32.6 % (10.0-50.0); Mean Corpuscular Hemoglobin 33.3 pg (28.0-32.0); Mean Corpuscular Volume 95.1 fL (80.0-100.0); Monocytes # (auto) 0.9 10 ^3/uL (0-1.3); Monocytes % (auto) 12.7 % (0.0-12.0); Neutrophils # (auto) 3.5 10 ^3/uL (1.6-8.6); Neutrophils % (auto) 48.2 % (37.0-80.0); Nucleated Red Blood Cells % 0.1 %; Platelet Count (auto) 279 10^3/uL (140-450); Red Blood Cells 3.08 10^6/uL (4.0-5.20); Red Cell Distribution Width 13.3 % (11.8-14.3); White Blood Cell 7.2 10^3/uL (4.4-10.8)
[2024-03-03 06:36] LABS: Anion Gap 6 (5-15); Carbon Dioxide 29 mmol/L (20-31); Chloride 105 mmol/L (98-107); Potassium 3.1 mmol/L (3.5-5.1); Sodium 140 mmol/L (136-145)
[2024-03-03 06:41] LABS: BUN/Creatinine Ratio 9.4 (10.0-20.0); Blood Urea Nitrogen 8 mg/dL (9-23); Glucose 108 mg/dL (74-106)
--- NOTE | 2024-03-03 10:22 | DVHINCON2 ---
Date of service: Mar 02, 2024 History of Present Illness 58 YO F who presents to hospital for knee surgery. post op she was complaining of ruq pain, n/v. pt underwent hida scan, which was positive. pt states prior to knee surgery, she had occasional pain in ruq. pmh; bipolar Past Surgical History knee surg, c/s Family History: Patient reports no known family medical history. Allergies: Coded Allergies: Ketorolac Tromethamine (Verified Adverse Reaction, Unknown, NAUSEA/VOMITING, 03/03/24) Home Meds Reported Medications Divalproex Sodium (Depakote) 125 Mg Tab, 125 MG PO, TAB 02/24/24 Gabapentin (Gabapentin) 300 Mg Cap, 300 MG PO for 30 Days, MG 02/24/24 Quetiapine Fumerate (Seroquel) 400 Mg Tab 12/31/11 Hydrocodone-Acetaminophen ([place] 5/325MG) 1 Tab Tb 12/31/11 Review of Systems neg unless mentioned in hpi Vital Signs Vital Signs Date Time Temp Pulse Resp B/P (MAP) Pulse Ox O2 Delivery O2 Flow Rate FiO2 03/03/24 09:00 98.1 60 18 116/60 (78) 96 98.1 03/02/24 20:00 Room Air* 0 21 Physical Exam gen; aaox3,nad cvs; [id number] lung; normal effort abd; soft nd mildly ttp in ruq, no r r g ext; no edema Labs/Diagnostic Data Labs Test 03/03/24 05:59 03/02/24 11:58 03/01/24 17:51 02/27/24 17:05 Range/Units White Blood Count 7.2 4.4-10.8 10^3/uL Red Blood Count 3.08 L 4.0-5.20 10^6/uL Hemoglobin 10.2 L 12.2-16.2 g/dL Hematocrit 29.3 #L 36.0-46.0 % Mean Corpuscular Volume 95.1 80.0-100.0 fL Mean Corpuscular Hemoglobin 33.3 H 28.0-32.0 pg Mean Corpuscular Hemoglobin Concent 35.0 32.0-36.0 g/dL Red Cell Distribution Width 13.3 11.8-14.3 % Platelet Count 279 140-450 10^3/uL Mean Platelet Volume 8.6 6.9-10.8 fL Neutrophils (%) (Auto) 48.2 37.0-80.0 % Lymphocytes (%) (Auto) 32.6 10.0-50.0 % Monocytes (%) (Auto) 12.7 H 0.0-12.0 % Eosinophils (%) (Auto) 5.6 0.0-7.0 % Basophils (%) (Auto) 0.9 0.0-2.0 % Neutrophils # (Auto) 3.5 1.6-8.6 10 ^3/uL Lymphocytes # (Auto) 2.3 0.4-5.4 10 ^3/uL Monocytes # (Auto) 0.9 0-1.3 10 ^3/uL Eosinophils # (Auto) 0.4 0-0.8 10 ^3/uL Basophils # (Auto) 0.1 0-0.2 10 ^3/uL Nucleated Red Blood Cells 0.1 % Sodium Level 140 136-145 mmol/L Potassium Level 3.1 L 3.5-5.1 mmol/L Chloride Level 105 98-107 mmol/L Carbon Dioxide Level 29 20-31 mmol/L Anion Gap 6 5-15 Blood Urea Nitrogen 8 L 9-23 mg/dL Creatinine 0.85 0.550-1.02 mg/dL Glomerular Filtration Rate Calc 78 >90 mL/min BUN/Creatinine Ratio 9.4 L 10.0-20.0 Serum Glucose 108 H 74-106 mg/dL Calcium Level 9.0 8.7-10.4 mg/dL Prothrombin Time 10.9 9.3-11.8 sec Prothrombin Time INR 1.03 0.9-1.15 Activated Partial Thromboplast Time 29.2 24.5-34.5 SEC Total Bilirubin 0.9 0.2-1.0 mg/dL Aspartate Amino Transferase (AST) 20 13-40 U/L Alanine Aminotransferase (ALT) 11 7-40 U/L Alkaline Phosphatase 86 46-116 U/L Total Protein 7.0 5.7-8.2 g/dL Albumin 4.2 3.2-4.8 g/dL Hepatitis B Surface Antibody Negative Negative Hepatitis C Antibody Negative Negative Assessment 58 yo F with acute cholecystitis Plan/Recommendation npo after midnight ivf iv abx pt ptt inr type and screen med clearance consented pt states she will update her family after surgery Plan discussed with: Patient CANDY CRAWFORD MD Mar 03, 2024 10:22
[2024-03-03] MEDS: LIDOCAINE W/ EPINEPHRINE 1% 20ML VIAL ONE (10:51)
[2024-03-03] MEDS: BUPIVACAINE W/ EPINEPH 0.5% MPF 30ML VIAL IJ ONE (10:52)
[2024-03-03] MEDS ORDERED: MIDAZOLAM HCL 2MG/2ML 2ml VIAL (1mg/ml) ONE (10:55)
[2024-03-03] MEDS ORDERED: fentaNYL CITRATE 100 MCG/2 ML VL ONE (10:55)
[2024-03-03] MEDS ORDERED: PROPOFOL 10 MG/ML 20 ML IV ONE (10:55)
[2024-03-03] MEDS ORDERED: ceFAZolin 1GM VL ONE (11:16)
[2024-03-03] MEDS ORDERED: ePHEDrine SULFATE 50 MG/ML AMP ONE (11:22)
[2024-03-03] MEDS ORDERED: ONDANSETRON HCL 4 MG/2 ML VIAL ONE (11:32)
[2024-03-03] MEDS ORDERED: DexAMETHasone SOD PHOS 10MG/1ML VIAL INJ ONE (11:32)
[2024-03-03] MEDS ORDERED: SUGAMMADEX 200mg/2ml Vial (100MG/ML) IV ONE (11:42)
--- NOTE | 2024-03-03 11:51 | DVHOP2 ---
Operative Report - 2 Report Details Date: 03/03/24 Preop Diagnosis: acute cholecystitis Postop Diagnosis: acute cholecystitis Surgeon: Ion Crawford MD Anesthesiologist: melba munoz Anesthesia: General, Local Consent: The patient was informed of the risks and benefits of the procedure. These include but are not limited to complications of anesthesia, postoperative infection, incomplete relief of symptoms, recurrence of symptoms, damage to blood vessels, nerves and tendons, deep venous thrombosis, pulmonary embolism and possible need for repeat surgery in the future. Estimated Blood Loss: 10cc Findings: distended gb, packed with stones Indications for Surgery: 58-year-old female who presented to the hospital for knee surgery postoperatively had nausea vomiting HIDA scan was positive for cholecystitis I explained the risks benefits alternatives of the procedure she wished to proceed with surgical intervention and was consented as such Name of Procedure Performed Laparoscopic cholecystectomy Procedure Details Procedure Details: 58-year-old female identified in the preoperative holding area questions answered consent confirmed she did not have any next of kin or emergency contact and she wanted updated after surgery. Patient was transferred to the operating room placed supine on the OR room table appropriately padded positioned and secured to the table with footboard after the induction of general anesthesia the patient was widely prepped and draped in usual sterile fashion time-out performed all in agreement next a 2 cm infraumbilical midline incision made with 15 blade scalpel deepened with cautery through the skin subcutaneous tissues down to the level of the fascia the fascia was identified grasped with Karis lifted and sharply incised harmless entry to the abdominal cavity was gained 0 Vicryl U-stitch placed in the fascia Meche port introduced pneumoperitoneum was started without any cardiovascular compromise 3 more 5 mm ports were placed 1 subxiphoid 2 in the right upper quadrant patient was placed in reverse Trendelenburg with right side up and toward the positioning well gallbladder fundus was retracted cephalad and lateral infundibulum retracted laterally gallbladder appeared distended thickened gallbladder wall and packed with stones we began our dissection of the triangle of Calot cystic duct and cystic artery were skeletonized dissected free and a critical view of safety was achieved both structures were doubly clipped and cut buttock gallbladder dissected off liver fossa placed in Endo-Catch bag hemostasis in the fossa secured with cautery and Surgicel. Local infiltrated in all port sites ports removed under direct vision pneumoperitoneum evacuated specimen passed off for pathological analysis midline closed with 0 Vicryl and 2-0 Vicryl skin closed with ira patient was cleaned off sterile dressing was applied all counts correct x2 at the end the case patient had procedure well transferred to PACU in stable condition Patient did not want me to update any contact after surgery stated she would update them on her own after she recovers Specimen: gallbladder Condition Stable Disposition Still a Patient ION CRAWFORD MD Mar 03, 2024 11:51
[2024-03-03] MEDS ORDERED: HYDROmorphone HCL 2 MG/ML VL/or syr IV PRN (12:00)
[2024-03-03] MEDS: ONDANSETRON HCL 4 MG/2 ML VIAL IV ONE (12:00)
[2024-03-03] MEDS ORDERED: fentaNYL CITRATE 100 MCG/2 ML VL IV PRN (12:00)
[2024-03-03] MEDS: LIDOCAINE 1%HCL (LOCAL ANESTH) 10 ML MDV IJ ONE (13:23)
--- NOTE | 2024-03-03 16:37 | DVHPN2 ---
Progress Note - Dictate Date Seen: Mar 03, 2024 Medical Necessity Reason Pt with a Central, PICC or Fol: No Subjective She underwent successful gallbladder surgery this morning. Postop tolerating clear liquid diet. vital signs Vital Sign Date Time Temp Pulse Resp B/P (MAP) Pulse Ox O2 Delivery O2 Flow Rate FiO2 03/03/24 15:01 86 18 128/72 03/03/24 12:50 98.1 94 98.1 03/03/24 12:07 Nasal Cannula 2.0 96 Total Intake and Output 03/02/24 03/02/24 03/03/24 15:00 23:00 07:00 Intake Total 100 ml 1300 ml 1850 ml Balance 100 ml 1300 ml 1850 ml medications Current Medications Medications Dose Ordered Sig/Goldy Route Start Time Stop Time Status Last Admin Dose Admin Diphenhydramine HCl 25 mg Q4HP PRN IV 02/27/24 09:30 Quetiapine Fumarate 400 mg HS PO 02/27/24 22:00 03/02/24 22:07 400 MG Dextrose/Lactated Ringer's 1,000 ml @ 100 mls/hr Q10H IV 02/27/24 09:30 03/03/24 09:30 100 MLS/HR Acetaminophen 650 mg Q4HP PRN PO 02/27/24 09:30 Acetaminophen 650 mg Q6HR PO 02/27/24 12:00 03/03/24 06:16 650 MG Pregabalin 50 mg BID PO 02/27/24 10:00 03/02/24 20:55 50 MG Oxycodone HCl 5 mg Q4HP PRN PO 02/27/24 09:30 Oxycodone HCl 10 mg Q4HP PRN PO 02/27/24 09:30 Hold Ondansetron HCl 4 mg Q4HPRN PRN IV 02/27/24 17:30 03/01/24 21:17 4 MG Patient Own Medication 125 DAILY PO 02/29/24 10:00 Hydralazine HCl 10 mg Q4HPRN PRN IV 02/29/24 22:45 03/01/24 13:23 10 MG Morphine Sulfate 2 mg Q4HPRN PRN IV 03/01/24 14:00 03/03/24 14:24 2 MG Piperacillin Sod/ Tazobactam Sod 100 ml @ 25 mls/hr Q8H IV 03/02/24 01:00 03/03/24 08:26 25 MLS/HR objective Comfortable in bed without any complaints. Abdomen soft positive active bowel sounds nondistended. Heart sinus rhythm S1 plus S2. laboratory and microbiology Laboratory Tests 03/03/24 05:59 Test 03/03/24 05:59 Range/Units Serum Glucose 108 H 74-106 mg/dL Assessment/Plan Acute cholecystitis Status post right knee surgery Status post gallbladder surgery Patient is clinically stable. Start her on clear liquid diet today. Soft diet for breakfast. If he tolerates discharge home tomorrow. Discussed with the patient and nurse regarding care plan. Plan discussed with: Other BRENNA NIÑO MD Mar 03, 2024 16:37
[2024-03-04] VITALS (7 sets, daily range): BP systolic 117–144; BP diastolic 71–84; PULSE 89–103; RESP 16–19; TEMP 97.5–98.6; O2SAT 91–100
[2024-03-04] MEDS ORDERED: SENN-58 PO (11:59)
[2024-03-04] MEDS ORDERED: AMOX500T86 PO (11:59)
[2024-03-04] MEDS ORDERED: HYDR-4902 PO (11:59)
== END 2024-03-04 18:37 | disposition home health service (06) | DRG 326 ==
LOC: SUR 06:00 → TELE 09:21 → TELE-CENTR 12:10
PROVIDERS: ADMIT Orthopaedic Surgery; ATTEND Hospitalist
PROC: 0SRC0J9 Replacement of Right Knee Joint with Synthetic Substitute, Cemented, Open Approach (ICD-10-PCS; principal; 2024-02-27 07:21)
PROC: 0FT44ZZ Resection of Gallbladder, Percutaneous Endoscopic Approach (ICD-10-PCS; 2024-03-03)
DX: M17.11 Unilateral primary osteoarthritis, right knee (principal); K80.00 Calculus of gallbladder with acute cholecystitis without obstruction; F31.9 Bipolar disorder, unspecified; G62.9 Polyneuropathy, unspecified; Z96.651 Presence of right artificial knee joint; Z79.899 Other long term (current) drug therapy
CPT/HCPCS: 36415; 71045; 73560; 76705; 78226; 80048; 80053; 85025; 85610; 85730; 86706; 86803; 86850; 86900; 86901; 97110; 97116; 97163; 97530; G0378; J0171; J0330; J0690; J1100; J1885; J2003; J2250; J2405; J2543; J2704; J3490